=== PATIENT | female | born 1985 | race African-American/Black ===

== ENCOUNTER 2021-03-03 19:50 | Emergency (ER) | payer OTHER ==
[~2021-03-03] VITALS: Ht 154.9 cm; Wt 59.0 kg
[2021-03-03] MEDS ORDERED: SODIUM CHLORIDE 0.9% 1,000 ML IVB ONE (20:15)
[2021-03-03] MEDS ORDERED: MORPHINE SULFATE 4 MG/ML SYR/VIAL IV ONE (20:15)
[2021-03-03] MEDS ORDERED: ONDANSETRON HCL 4 MG/2 ML VIAL IV ONE (20:15)
[2021-03-03 21:31] LABS: Basophils # (auto) 0.1 10 ^3/uL (0-0.2); Eosinophils # (auto) 0.1 10 ^3/uL (0-0.8); Lymphocytes # (auto) 1.9 10 ^3/uL (0.4-5.4); Monocytes # (auto) 0.9 10 ^3/uL (0-1.3)
[2021-03-03 21:32] LABS: Basophils % (auto) 0.8 % (0.0-2.0); Eosinophils % (auto) 0.7 % (0.0-7.0); Hematocrit 33.9 % (36.0-46.0); Hemoglobin 11.6 g/dL (12.2-16.2); Lymphocytes % (auto) 18.6 % (10.0-50.0); Mean Corpuscular Hemoglobin 24.8 pg (28.0-32.0); Mean Corpuscular Hgb Conc. 34.2 g/dL (32.0-36.0); Mean Corpuscular Volume 72.5 fL (80.0-100.0); Monocytes % (auto) 8.6 % (0.0-12.0); Neutrophils # (auto) 7.4 10 ^3/uL (1.6-8.6); Neutrophils % (auto) 71.3 % (37.0-80.0); Nucleated Red Blood Cells % 0.2 %; Red Blood Cells 4.67 10^6/uL (4.0-5.20); Red Cell Distribution Width 19.7 % (11.8-14.3); White Blood Cell 10.4 10^3/uL (4.4-10.8)
[2021-03-03 21:42] LABS: Albumin 3.8 g/dL (3.4-5.0); Calcium 8.8 mg/dL (8.5-10.1); Potassium 3.5 mmol/L (3.5-5.1)
[2021-03-03 21:44] LABS: Bilirubin, Total 1.5 mg/dL (0.2-1.0); Total Protein 7.8 g/dL (6.4-8.2)
[2021-03-04 02:41] LABS: Urine Bacteria FEW /hpf (None Seen); Urine Blood Negative /uL (Negative); Urine Mucus FEW (None Seen); Urine Specific Gravity 1.035 (1.001-1.035); Urine WBC 3 /hpf (0 - 5)
[2021-03-04 03:00] VITALS: BP 131/82
== END 2021-03-04 03:12 | disposition home or self-care (01) ==
LOC: ER 19:53
DX: O21.0 Mild hyperemesis gravidarum (principal); Z3A.01 Less than 8 weeks gestation of pregnancy
CPT/HCPCS: 36415; 76801; 80053; 81001; 82010; 84702; 85025; 96361; 96374; 96375; 99284; J2270; J2405; J7030

== ENCOUNTER 2021-03-09 10:31 | Emergency (ER) | payer OTHER ==
[~2021-03-09] VITALS: Ht 154.9 cm; Wt 59.0 kg
[2021-03-09 11:00] LABS: Basophils # (auto) 0.1 10 ^3/uL (0-0.2); Eosinophils # (auto) 0.1 10 ^3/uL (0-0.8); Mean Corpuscular Hemoglobin 24.9 pg (28.0-32.0); Monocytes # (auto) 0.8 10 ^3/uL (0-1.3); Neutrophils # (auto) 7.8 10 ^3/uL (1.6-8.6); Nucleated Red Blood Cells % 0.1 %; Red Blood Cells 4.76 10^6/uL (4.0-5.20)
[2021-03-09] MEDS ORDERED: SODIUM CHLORIDE 0.9% 1,000 ML IVB ONE (11:00)
[2021-03-09] MEDS ORDERED: MORPHINE SULFATE 4 MG/ML SYR/VIAL IV ONE (11:00)
[2021-03-09] MEDS ORDERED: ONDANSETRON HCL 4 MG/2 ML VIAL IV ONE (11:00)
[2021-03-09 11:02] LABS: Basophils % (auto) 1.1 % (0.0-2.0); Eosinophils % (auto) 0.6 % (0.0-7.0); Hematocrit 33.6 % (36.0-46.0); Hemoglobin 11.8 g/dL (12.2-16.2); Lymphocytes # (auto) 1.3 10 ^3/uL (0.4-5.4); Mean Corpuscular Hgb Conc. 35.2 g/dL (32.0-36.0); Mean Corpuscular Volume 70.7 fL (80.0-100.0); Monocytes % (auto) 7.6 % (0.0-12.0); Neutrophils % (auto) 77.7 % (37.0-80.0)
[2021-03-09 11:07] LABS: Red Cell Distribution Width 20.3 % (11.8-14.3)
[2021-03-09 11:21] LABS: Albumin 3.4 g/dL (3.4-5.0); Calcium 9.2 mg/dL (8.5-10.1)
[2021-03-09 11:24] LABS: BUN/Creatinine Ratio 12.3; Bilirubin, Total 1.2 mg/dL (0.2-1.0); Total Protein 8.1 g/dL (6.4-8.2)
[2021-03-09 11:32] LABS: Potassium 2.9 mmol/L (3.5-5.1)
[2021-03-09] MEDS ORDERED: POTASSIUM CHL 20MEQ/100ML 100 ML IV ONE (12:00)
[2021-03-09 12:34] LABS: Urine Bacteria NONE SEEN /hpf (None Seen); Urine Blood 2+ /uL (Negative); Urine Mucus FEW (None Seen); Urine Specific Gravity 1.037 (1.001-1.035); Urine WBC 6 /hpf (0 - 5)
[2021-03-09 12:41] VITALS: BP 123/63
[2021-03-09] MEDS ORDERED: POTASSIUM CHL 20 Meq TABLET PO ONE (13:15)
== END 2021-03-09 13:41 | disposition home or self-care (01) ==
LOC: ER 10:31
DX: O21.0 Mild hyperemesis gravidarum (principal); O20.0 Threatened abortion; Z3A.08 8 weeks gestation of pregnancy
CPT/HCPCS: 36415; 76801; 80053; 81001; 82010; 84702; 85025; 96361; 96374; 96375; 99284; J2270; J2405; J3480; J7030; 96365; 96366